=== PATIENT | male | born 1965 | race Asian ===

== ENCOUNTER 2023-03-12 12:30 | Emergency (ER) | payer MEDICAID ==
[~2023-03-12] VITALS: Ht 177.8 cm; Wt 73.0 kg
[2023-03-12 13:58] VITALS: O2SAT 98
[2023-03-12 18:01] LABS: BASOPHILS % 0.6 % (0.0-2.0); EOSINOPHILS % 1.5 % (0.0-5.0); HEMATOCRIT. 42.6 % (42.0-52.0); LYMPHOCYTES % 47.8 % (20.0-50.0); MEAN CORPUSCULAR HEMOGLOBIN 27.7 pg (28.0-32.0); MEAN CORPUSCULAR HGB CONC 32.9 g/dL (31.0-37.0); MEAN CORPUSCULAR VOLUME 84.3 fL (80.0-94.0); MEAN PLATELET VOLUME 8.6 fl (7.4-10.4); MONOCYTES % 5.7 % (2.0-8.0); NEUTROPHILS % 44.4 % (40.0-76.0); PLATELET 262 x1000/uL (130-400); RED BLOOD CELL COUNT 5.05 mill/uL (4.7-6.1); RED CELL DISTRIBUTION WIDTH 13.7 % (11.6-14.6); WHITE BLOOD COUNT 6.7 x1000/uL (4.5-11.0)
[2023-03-12] MEDS ORDERED: OFLO5DRO4 LEFT EAR (18:42)
[2023-03-12 19:13] VITALS: BP 129/89; PULSE 85; RESP 19; TEMP 98.4
== END 2023-03-12 19:15 | disposition home or self-care (01) ==
LOC: ER 14:18
DX: H72.92 Unspecified perforation of tympanic membrane, left ear (principal); Z90.49 Acquired absence of other specified parts of digestive tract
CPT/HCPCS: 36415; 85025; 99283